=== PATIENT | male | born 1975 ===

== ENCOUNTER 2020-08-28 10:12 | Emergency (ER) | payer SELFPAY ==
[2020-08-28] MEDS ORDERED: predniSONE 20 MG TAB PO ONE (14:27)
[2020-08-28] MEDS ORDERED: ACETAMINOPHEN W/CODEINE 300-30 MG TAB PO ONE (14:28)
[2020-08-28] MEDS ORDERED: CLINDAMYCIN 150 MG/ML 2 ML VIAL IM SCH (15:00)
[2020-08-28 17:32] VITALS: BP 118/72
== END 2020-08-28 17:32 | disposition home or self-care (01) ==
LOC: ED 10:12
DX: L03.114 Cellulitis of left upper limb (principal); Z98.890 Other specified postprocedural states; Z79.899 Other long term (current) drug therapy
CPT/HCPCS: 96372; 99282; J7512